=== PATIENT | female | born 1955 | race Caucasian/White ===

== ENCOUNTER → 2017-05-10 | Day surgery (SDC) | payer OTHER ==
[~2017-05-10] VITALS: Ht 162.6 cm; Wt 111.1 kg
[~2017-05-10] MED LIST: METFORMIN HCL1000 M1 PO; PROAIR HFA8.5 GM INH; SINGULAIR10 M1 PO
--- NOTE | 2017-05-10 14:48 | Operative Report ---
Operative/Inv Procedure Report Surgery Date: 05/10/17 Name of Procedure: Hysteroscopy, dilation and curettage Pre-Operative Diagnosis: Postmenopausal bleeding Post-Operative Diagnosis: Same Estimated Blood Loss: less than 50ml Surgeon/Retail Asset Protection Specialist: REILLY GONG MD Anesthesia: moderate sedation IV Fluids: Lactated Ringer's Urine Output: 100 mL straight cath clear urine at beginning of the procedure Specimens: E[facility] Complications: None Condition: Stable Operative Indication: 61-year-old, she had 2 episodes of postmenopausal bleeding, transvaginal ultrasound showed endometrial lining 4.4 mm, fibroid uterus. Operative/Procedure Note Note: The patient was taken to the operating room where moderate IV sedation was obtained without difficulty. The patient was then examined under anesthesia and found to have a anteverted uterus with normal adnexa. She was then placed in dorsal lithotomy position and prepared and draped in the usual sterile fashion. A bivalve speculum was then placed in the patient's vagina and the anterior lip of the cervix grasped with the single-toothed tenaculum. The uterus were gently sounded to 8 cm, the cervix was gently dilated to accommodate a diagnostic hysteroscope. Hysteroscope was inserted into the uterine cavity, normal-appearing endometrium seen. Hysteroscope was withdrawn from the uterine cavity, a sharp curette was inserted, a sharp curetting was done, endometrial samples were sent to pathology. There was minimal bleeding noted and the tenaculum removed with good hemostasis noted. Patient tolerated the procedure well. The patient was taken to the recovery room in stable condition. Findings: Anteverted uterus, sounded to 8 cm. Normal appearing endometrium.
== END ==
LOC: STS 01:42
DX: N95.0 Postmenopausal bleeding (principal); D25.9 Leiomyoma of uterus, unspecified; N85.4 Malposition of uterus; E66.9 Obesity, unspecified; Z68.42 Body mass index [BMI] 45.0-49.9, adult; E11.9 Type 2 diabetes mellitus without complications; Z79.84 Long term (current) use of oral hypoglycemic drugs
CPT/HCPCS: 36415; J0131; J2250